=== PATIENT | male | born 1960 | race Caucasian/White ===

== ENCOUNTER 2018-05-03 18:35 | Observation (INO) | payer OTHER ==
[2018-05-03 19:25] LABS: Absolute Lymphocytes (CBC) 2.4 K/uL (0.7-4.9); Absolute Monocytes 0.8 K/uL (0.1-1.3); Absolute Neutrophil 4.9 K/uL (1.8-8.0); Basophils % 0.5 % (0-1.3); Eosinophils % 2.9 % (0-4.4); Hematocrit 39.4 % (39.6-49.0); Lymphocytes % 28.8 % (15.3-44.8); MPV 8.2 fL (7.6-11.3); Monocytes % 9.1 % (3.3-12.3); RBC Red Blood Cell Count 4.38 M/uL (4.33-5.43)
[2018-05-03 19:30] LABS: Protime INR 1.03
[2018-05-03 19:43] LABS: ALT/SGPT 23 U/L (12-78); AST/SGOT 15 U/L (15-37); Albumin 3.7 g/dL (3.4-5.0); Alkaline Phosphatase 133 U/L (45-117); BUN Blood Urea Nitrogen 16 mg/dL (7-18); Bicarbonate 20 mmol/L (21-32); Bilirubin Direct < 0.1 mg/dL (0-0.2); Bilirubin Total 0.2 mg/dL (0.2-1.0); Glucose Level 239 mg/dL (74-106); Magnesium 1.7 mg/dL (1.8-2.4); NT PRO-BNP 54 pg/mL (<125); Potassium 4.3 mmol/L (3.5-5.1); Protein, Total 6.9 g/dL (6.4-8.2); Sodium Level 140 mmol/L (136-145); Troponin (Emerg Dept Use Only) < 0.02 ng/mL (0.0-0.045)
[2018-05-03] MEDS ORDERED: ASPIRIN 81 MG CHEWABLE TABLET ONE (19:44)
--- NOTE | 2018-05-03 19:51 | EDPHYS ---
Physician Documentation [facility] Name: Ashvin Morales Age: 57 yrs Sex: Male : 1960 Arrival Date: 05/03/2018 Time: 18:36 Bed 15 Private MD: Martin Kohli ED Physician Ashutosh Jackson HPI: 05/03 20:27 This 57 yrs old Male presents to ER via Ambulatory with complaints of Chest snw Pain > 30 y/o. 20:27 The patient or guardian reports chest pain that is located primarily in the substernal snw area, epigastric area. Onset: suddenly, and became persistent. The pain does not radiate. Associated signs and symptoms: Pertinent positives: lightheadedness, shortness of breath. The chest pain is described as squeezing. Duration: The patient or guardian reports a single episode, that is now resolved. Modifying factors: The symptoms are alleviated by NTG, X1. Severity of pain: At its worst the pain was moderate. The patient has experienced similar episodes in the past. It is unknown whether or not the patient has recently seen a physician. Sees Dr. Carrion. Historical: - Allergies: 18:47 No Known Allergies; aj1 - PMHx: 18:47 cardiac stent x9; Myocardial infarction; brain aneursym; Diabetes - NIDDM; aj1 - Immunization history:: Flu vaccine is not up to date. - Social history:: Smoking status: Patient/guardian denies using tobacco. - Ebola Screening: : Patient denies travel to an Ebola-affected area in the 21 days before illness onset. ROS: 20:27 Constitutional: Negative for fever, chills, and weight loss, Eyes: Negative for injury, snw pain, redness, and discharge, ENT: Negative for injury, pain, and discharge, Neck: Negative for injury, pain, and swelling. 20:27 Abdomen/GI: Negative for abdominal pain, nausea, vomiting, diarrhea, and constipation, Back: Negative for injury and pain, : Negative for injury, bleeding, discharge, and swelling, MS/Extremity: Negative for injury and deformity, Skin: Negative for injury, rash, and discoloration. 20:27 Cardiovascular: Positive for chest pain. 20:27 Respiratory: Positive for shortness of breath. 20:27 Neuro: Positive for dizziness. Exam: 20:26 Constitutional: This is a well developed, well nourished patient who is awake, alert, snw and in no acute distress. Head/Face: Normocephalic, atraumatic. Eyes: Pupils equal round and reactive to light, extra-ocular motions intact. Lids and lashes normal. Conjunctiva and sclera are non-icteric and not injected. Cornea within normal limits. Periorbital areas with no swelling, redness, or edema. ENT: Nares patent. No nasal discharge, no septal abnormalities noted. Tympanic membranes are normal and external auditory canals are clear. Oropharynx with no redness, swelling, or masses, exudates, or evidence of obstruction, uvula midline. Mucous membranes moist. Neck: Trachea midline, no thyromegaly or masses palpated, and no cervical lymphadenopathy. Supple, full range of motion without nuchal rigidity, or vertebral point tenderness. No Meningismus. Chest/axilla: Normal chest wall appearance and motion. Nontender with no deformity. No lesions are appreciated. Cardiovascular: Regular rate and rhythm with a normal S1 and S2. No gallops, murmurs, or rubs. Normal PMI, no JVD. No pulse deficits. Respiratory: Lungs have equal breath sounds bilaterally, clear to auscultation and percussion. No rales, rhonchi or wheezes noted. No increased work of breathing, no retractions or nasal flaring. Abdomen/GI: Soft, non-tender, with normal bowel sounds. No distension or tympany. No guarding or rebound. No evidence of tenderness throughout. Back: No spinal tenderness. No costovertebral tenderness. Full range of motion. Skin: Warm, dry with normal turgor. Normal color with no rashes, no lesions, and no evidence of cellulitis. MS/ Extremity: Pulses equal, no cyanosis. Neurovascular intact. Full, normal range of motion. Neuro: Awake and alert, GCS 15, oriented to person, place, time, and situation. Cranial nerves II-XII grossly intact. Motor strength 5/5 in all extremities. Sensory grossly intact. Cerebellar exam normal. Normal gait. Psych: Awake, alert, with orientation to person, place and time. Behavior, mood, and affect are within normal limits. Vital Signs: 18:47 BP 121 / 85; Pulse 91; Resp 18; Temp 98.4; Pulse Ox 99% on R/A; Weight 74.84 kg (R); aj1 Height 5 ft. 6 in. (167.64 cm) (R); Pain 3/10; 19:30 BP 108 / 79; Pulse 90; Resp 16; Pulse Ox 98% on 2 lpm NC; Pain 0/10; aa1 20:30 BP 111 / 77; Pulse 80; Resp 16; Pulse Ox 100% on R/A; Pain 0/10; aa1 21:35 BP 112 / 82; Pulse 82; Resp 16; Temp 98.6; Pulse Ox 98% on R/A; Pain 0/10; aa1 18:47 Body Mass Index 26.63 (74.84 kg, 167.64 cm) aj1 MDM: 18:52 Patient medically screened. snw 19:50 HEART Score: History: Moderately Suspicious (1), ECG: Non specific repolarization snw disturbance / LBTB / PM (1), Age: > 45 and < 65 years (1), Risk Factors: > or = 3 Risk factors for atherosclerotic disease (2), [Hypercholesterolemia] [Hypertension] [DM] [+ Family HX] Troponin: < or = 1 x Normal Limit (0), Total Score =. The patient was given aspirin in the Emergency Department. Data reviewed: nurses notes, lab test result(s), EKG, radiologic studies. Counseling: I had a detailed discussion with the patient and/or guardian regarding: the historical points, exam findings, and any diagnostic results supporting the discharge/admit diagnosis, lab results, radiology results, the need for further work-up and treatment in the hospital. Physician consultation: Keshawn Low MD was called at 19:52, was contacted at 19:52, regarding admission, to the telemetry unit. 05/03 18:51 Order name: Basic Metabolic Panel; Complete Time: 19:45 snw 05/03 18:51 Order name: CBC with Diff; Complete Time: 19:39 snw 05/03 18:51 Order name: LFT's; Complete Time: 19:45 snw 05/03 18:51 Order name: Magnesium; Complete Time: 19:45 snw 05/03 18:51 Order name: NT PRO-BNP; Complete Time: 19:45 snw 05/03 18:51 Order name: PT-INR; Complete Time: 19:40 snw /13 18:51 Order name: Troponin (emerg Dept Use Only); Complete Time: 19:45 w 05/03 18:51 Order name: XRAY Chest (1 view); Complete Time: 19:57 w 05/03 18:51 Order name: EKG; Complete Time: 18:53 05/03 18:51 Order name: Cardiac monitoring; Complete Time: 19:13 w 05/03 18:51 Order name: EKG - Nurse/Tech; Complete Time: 19:13 05/03 18:51 Order name: IV Saline Lock; Complete Time: 19:13 05/03 18:51 Order name: Labs collected and sent; Complete Time: 19:13 05/03 18:51 Order name: O2 Per Protocol; Complete Time: 19:13 05/03 18:51 Order name: O2 Sat Monitoring; Complete Time: 19:13 snw Administered Medications: 19:39 Drug: Aspirin Chewable Tablet 324 mg Route: PO; aa1 22:04 Follow up: Response: No adverse reaction aa1 Disposition: 05/03/18 19:50 Hospitalization ordered by Keshawn Low for Observation. Preliminary diagnosis is Chest pain, unspecified. - Bed requested for Telemetry/MedSurg (observation). - Status is Observation. aa1 - Condition is Stable. - Problem is new. - Symptoms have worsened. UTI on Admission? No Addendum: 05/08/2018 01:29 Co-signature as Attending Physician, Ashutosh Jackson MD. g s Signatures: Dispatcher [employer] EDMA Elana Bhakta RN RN aj1 Mariel Lopez RN RN kl Kern, Alissa, RN RN aa1 Patty Lora, HYDRAULICS ENGINEER-C HYDRAULICS ENGINEER-Csnw Ashutosh Jackson MD MD gs Corrections: (The following items were deleted from the chart) 05/03 20:53 19:50 Hospitalization Ordered by Keshawn Low MD for Observation. Preliminary kl diagnosis is Chest pain, unspecified. Bed requested for Telemetry/MedSurg (observation). Status is Observation. Condition is Stable. Problem is new. Symptoms have worsened. UTI on Admission? No. snw 22:12 20:53 05/03/2018 19:50 Hospitalization Ordered by Keshawn Low MD for Observation. aa1 Preliminary diagnosis is Chest pain, unspecified. Bed requested for Telemetry/MedSurg (observation). Status is Observation. Condition is Stable. Problem is new. Symptoms have worsened. UTI on Admission? No. kl
--- NOTE | 2018-05-03 19:51 | ER ---
Nurse's Notes [facility] Name: Ashvin Morales Age: 57 yrs Sex: Male : 1960 Arrival Date: 05/03/2018 Time: 18:36 Bed 15 Private MD: Martin Kohli Diagnosis: Chest pain, unspecified Presentation: 05/03 18:45 Presenting complaint: Patient states: Shortness of breath and chest pain that started aj1 this morning. Patient reports that he has been sick with cough and congestion for 2 weeks now, but his chest pain today felt different and he was concerned because he has had to get 9 cardiac stents in the past and every time he has had a [place] the pain has been different. Patient reports that he took NTG 0.4 mg x1 prior to arrival. Transition of care: patient was not received from another setting of care. Onset of symptoms was May 03, 2018. Risk Assessment: Do you want to hurt yourself or someone else? Patient reports no desire to harm self or others. Initial Sepsis Screen: Does the patient meet any 2 criteria? No. Patient's initial sepsis screen is negative. Does the patient have a suspected source of infection? Yes: Productive cough/pneumonia. Care prior to arrival: None. 18:45 Method Of Arrival: Ambulatory aj1 18:45 Acuity: RANDY 2 aj1 Triage Assessment: 18:47 General: Appears in no apparent distress. uncomfortable, Behavior is calm, cooperative, aj1 appropriate for age. Pain: Complains of pain in chest Pain currently is 3 out of 10 on a pain scale. Quality of pain is described as pressure. Neuro: Level of Consciousness is awake, alert, obeys commands. Cardiovascular: Reports chest pain, Patient's skin is warm and dry. Rhythm is sinus tachycardia. Respiratory: Airway is patent Respiratory effort is even, unlabored, Respiratory pattern is regular, symmetrical. Historical: - Allergies: 18:47 No Known Allergies; aj1 - PMHx: 18:47 cardiac stent x9; Myocardial infarction; brain aneursym; Diabetes - NIDDM; aj1 - Immunization history:: Flu vaccine is not up to date. - Social history:: Smoking status: Patient/guardian denies using tobacco. - Ebola Screening: : Patient denies travel to an Ebola-affected area in the 21 days before illness onset. Screenin:03 Abuse screen: Denies threats or abuse. Denies injuries from another. Nutritional aa1 screening: No deficits noted. Tuberculosis screening: No symptoms or risk factors identified. Fall Risk None identified. Assessment: 19:03 General: Appears in no apparent distress. comfortable, well groomed, Behavior is calm, aa1 cooperative, appropriate for age. Pain: Complains of pain in chest Pain does not radiate. Quality of pain is described as pressure, Pain began 3 hours ago. Is continuous. Neuro: Level of Consciousness is awake, alert, obeys commands, Oriented to person, place, time, situation, Moves all extremities. Full function Speech is normal. Cardiovascular: Reports chest pain, shortness of breath, Denies diaphoresis, lightheadedness, nausea, palpitations, Heart tones S1 S2 present Capillary refill < 3 seconds Clubbing of nail beds is absent Patient's skin is warm and dry. Rhythm is regular Chest pain is described as mild, quality is pressure. Respiratory: Airway is patent Respiratory effort is even, unlabored, Respiratory pattern is regular, symmetrical, Breath sounds are clear bilaterally. GI: No signs and/or symptoms were reported involving the gastrointestinal system. : No signs and/or symptoms were reported regarding the genitourinary system. EENT: No signs and/or symptoms were reported regarding the EENT system. Derm: Skin is intact, is healthy with good turgor, Skin is pink, warm \T\ dry. Musculoskeletal: Circulation, motion, and sensation intact. Capillary refill < 3 seconds. 19:30 Reassessment: Patient appears in no apparent distress at this time. Patient and/or aa1 family updated on plan of care and expected duration. Pain level reassessed. Patient is alert, oriented x 3, equal unlabored respirations, skin warm/dry/pink. Awaiting lab results. 20:30 Reassessment: Patient appears in no apparent distress at this time. Patient and/or aa1 family updated on plan of care and expected duration. Pain level reassessed. Patient is alert, oriented x 3, equal unlabored respirations, skin warm/dry/pink. Pt to be admitted; awaiting bed assignment. 21:35 Reassessment: Patient appears in no apparent distress at this time. Patient and/or aa1 family updated on plan of care and expected duration. Pain level reassessed. Patient is alert, oriented x 3, equal unlabored respirations, skin warm/dry/pink. Attempted to call report to 4th floor, was told nurse unavailable and will call back shortly. 22:05 Reassessment: Patient appears in no apparent distress at this time. Patient and/or aa1 family updated on plan of care and expected duration. Pain level reassessed. Patient is alert, oriented x 3, equal unlabored respirations, skin warm/dry/pink. Report given to Barrett on 4th floor. Vital Signs: 18:47 BP 121 / 85; Pulse 91; Resp 18; Temp 98.4; Pulse Ox 99% on R/A; Weight 74.84 kg (R); aj1 Height 5 ft. 6 in. (167.64 cm) (R); Pain 3/10; 19:30 BP 108 / 79; Pulse 90; Resp 16; Pulse Ox 98% on 2 lpm NC; Pain 0/10; aa1 20:30 BP 111 / 77; Pulse 80; Resp 16; Pulse Ox 100% on R/A; Pain 0/10; aa1 21:35 BP 112 / 82; Pulse 82; Resp 16; Temp 98.6; Pulse Ox 98% on R/A; Pain 0/10; aa1 18:47 Body Mass Index 26.63 (74.84 kg, 167.64 cm) aj1 ED Course: 18:36 Patient arrived in ED. sb2 18:36 Martin Kohli MD is Private Physician. sb2 18:46 Triage completed. aj1 18:47 Arm band placed on Patient placed in an exam room. aj1 18:50 [facility]C [facility] snw 18:50 Ashutosh Jackson MD is Attending Physician. snw 19:00 Missed attempt(s): 18 gauge in right wrist. Bleeding controlled, band aid applied, aa1 catheter tip intact. 19:03 Patient has correct armband on for positive identification. Placed in gown. Bed in low aa1 position. Call light in reach. surveillance system monitor on. Pulse ox on. NIBP on. 19:05 Oxygen administration via nasal cannula \T\ 2L/min O2 via per STRATEGIC ACCOUNT DIRECTOR request. aa1 19:05 Initial lab(s) drawn, by me, sent to lab. EKG done, by ED staff, reviewed by Alvin Bowie MD. Inserted saline lock: 18 gauge in right forearm, using aseptic technique. Blood collected. 19:13 Monica Caldera, RN is Primary Nurse. aa1 19:41 XRAY Chest (1 view) In Process Unspecified. EDMS 19:50 Keshawn Low MD is Hospitalizing Provider. snw 21:32 No provider procedures requiring assistance completed. Patient admitted, IV remains in aa1 place. Administered Medications: 19:39 Drug: Aspirin Chewable Tablet 324 mg Route: PO; aa1 22:04 Follow up: Response: No adverse reaction aa1 Outcome: 19:50 Decision to Hospitalize by Provider. snw 22:10 Admitted to Tele accompanied by tech, via wheelchair, room 412, with chart, Report aa1 called to CLYDE Hyde 22:10 Condition: stable 22:10 Instructed on the need for admit, Demonstrated understanding of instructions. 22:12 Patient left the ED. aa1 Signatures: Dispatcher [employer] EDMS Elana Bhakta RN RN aj1 Monica Caldera RN RN aa1 Patty Lora, AIRFIELD MANAGER-C AIRFIELD MANAGER-Csnw Nadia Askew sb2 Corrections: (The following items were deleted from the chart) 18:49 18:45 Presenting complaint: Patient states: Shortness of breath and chest pain that aj1 started this morning. Patient reports that he has been sick with cough and congestion for 2 weeks now, but his chest pain today felt different and he was concerned because he has had to get 9 cardiac stents in the past and every time he has had a [place] the pain has been different. aj1 21:35 21:35 BP 112 / 82; Pulse 16bpm; Resp 82bpm; Pulse Ox 98% RA; Temp 98.6F; Pain 0/10; aa1 aa1
--- NOTE | 2018-05-03 19:54 | RAD REPORT ---
EXAM DESCRIPTION: RAD - Chest Single View - 05/03/2018 7:41 pm CLINICAL HISTORY: CHEST PAIN Chest pain. COMPARISON: No comparisons FINDINGS: Portable technique limits examination quality. The lungs are grossly clear. The heart is normal in size. No displaced fractures. IMPRESSION: No acute intrathoracic process suspected.
--- NOTE | 2018-05-03 20:18 | P.HP ---
Certification for Inpatient Patient admitted to: Observation With expected LOS: <2 Midnights Practitioner: I am a practitioner with admitting privileges, knowledge of patient current condition, hospital course, and medical plan of care. Services: Services provided to patient in accordance with Admission requirements found in Title 42 Section 412.3 of the Code of Federal Regulations Patient History Date of Service: 05/03/18 Reason for admission: chest pain History of Present Illness: Mr Morales is a 57 years old male with history of CAD, NIDDM, who has been with flu like symptoms for 2 weeks. 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 The pain was constant, pressure like, lasting for a couple of hours, improving with Nitro SL in ER. The pain is similar to his previous heart attack. Lab work shows normal trop I, EKG without acute ST-T changes. At my encounter he was still SOB with stable vital signs, O2 sat 99% on RA. Home medications list reviewed: Yes - Past Medical/Surgical History -: CAD -: DM II -: brain aneurism -: coronary stent placement - Family History Family History: Reviewed- Non-Contributory - Social History Smoking Status: Former smoker CD- Drugs: No Place of Residence: Home Review of Systems 10-point ROS is otherwise unremarkable Physical Examination - Physical Exam General: Alert, In no apparent distress HEENT: Atraumatic, PERRLA, Mucous membr. moist/pink, EOMI, Sclerae nonicteric Neck: Supple, 2+ carotid pulse no bruit, No LAD, Without JVD or thyroid abnormality Respiratory: Clear to auscultation bilaterally, Normal air movement Cardiovascular: Regular rate/rhythm, Normal S1 S2 Gastrointestinal: Normal bowel sounds, No tenderness Musculoskeletal: No tenderness Integumentary: No rashes Neurological: Normal speech, Normal strength at 5/5 x4 extr, Normal tone, Normal affect Lymphatics: No axilla or inguinal lymphadenopathy - Studies Laboratory Data (last 24 hrs) 05/03/18 19:05: PT 12.1, INR 1.03 05/03/18 19:05: WBC 8.3, Hgb 13.3 L, Hct 39.4 L, Plt Count 218 05/03/18 19:05: Sodium 140, Potassium 4.3, BUN 16, Creatinine 1.33 H, Glucose 239 H, Magnesium 1.7 L, Total Bilirubin 0.2, AST 15, ALT 23, Alkaline Phosphatase 133 H Assessment and Plan - Problems (Diagnosis) (1) Chest pain Current Visit: Yes Status: Acute Qualifiers: Chest pain type: precordial pain Qualified Code(s): R07.2 - Precordial pain (2) CAD (coronary artery disease) Current Visit: Yes Status: Acute Qualifiers: Coronary Disease-Associated Artery/Lesion type: [place] artery [place] vs. transplanted heart: [place] heart Associated angina: with unspecified angina Qualified Code(s): I25.119 - Atherosclerotic heart disease of [place] coronary artery with unspecified angina pectoris (3) Diabetes mellitus Current Visit: Yes Status: Acute Qualifiers: Diabetes mellitus type: type 2 Diabetes mellitus jail insulin use: without exterminator use Diabetes mellitus complication status: with unspecified complications Qualified Code(s): E11.8 - Type 2 diabetes mellitus with unspecified complications - Plan Will admit the patient for chest pain in order to R/O ACS. So far work up is negative. Will order serial troponin I and EKG. Consult cardiology team. - Advance Directives Does patient have a Living Will: No Does patient have a Durable POA for Healthcare: No - Code Status/Comfort Care Code Status Assessed: Yes Code Status: Full Code
[2018-05-03] MEDS ORDERED: NITROGLYCERIN 0.4 MG/TAB SL PRN (22:17)
[2018-05-03] MEDS ORDERED: ACETAMINOPHEN 500 MG TAB PO PRN (22:17)
[2018-05-03] MEDS ORDERED: ATORVASTATIN 80 MG TAB PO SCH (22:17)
[2018-05-03 22:22] VITALS: BMI 27.3
[2018-05-03] MEDS: ENOXAPARIN 80 MG/0.8 ML SQ SCH (22:52)
[2018-05-04 06:25] LABS: Absolute Lymphocytes (CBC) 2.6 K/uL (0.7-4.9); Absolute Monocytes 0.6 K/uL (0.1-1.3); Absolute Neutrophil 2.6 K/uL (1.8-8.0); Basophils % 0.7 % (0-1.3); Hematocrit 37.1 % (39.6-49.0); Lymphocytes % 42.2 % (15.3-44.8); MPV 8.3 fL (7.6-11.3); RBC Red Blood Cell Count 4.19 M/uL (4.33-5.43)
[2018-05-04 06:28] LABS: Urine Appearance CLEAR; Urine Bilirubin NEGATIVE (NEG); Urine Blood NEGATIVE (NEG); Urine Color YELLOW; Urine Glucose 3+ (NEG); Urine Protein NEGATIVE (NEG); Urine Specific Gravity 1.025 (1.005-1.030); Urine Urobilinogen 0.2 mg/dL (0.2-1.0)
[2018-05-04 06:31] LABS: BUN Blood Urea Nitrogen 16 mg/dL (7-18); Bicarbonate 28 mmol/L (21-32); Glucose Level 312 mg/dL (74-106); HDL Cholesterol 31 mg/dL (40-60); LDL Cholesterol, Calculated ND (<130); Potassium 4.4 mmol/L (3.5-5.1); Sodium Level 138 mmol/L (136-145)
[2018-05-04 06:33] LABS: Urine Microscopic Reflex NO UMIC
[2018-05-04 06:42] LABS: LDL, Direct 100 mg/dL (100-129)
[2018-05-04] MEDS: INSULIN -REGULAR HUMAN 50 UNIT/0.5 ML ML SQ SCH ×3 (06:46→12:00)
--- NOTE | 2018-05-04 07:58 | EKG ---
Test Date: 2018-05-03 Test Time: 19:04:39 Coin Machine Operator: ARIADNA MEASUREMENT RESULTS: Intervals: Rate: 85 NM: 134 QRSD: 74 QT: 346 QTc: 411 Secretary: P: 34 NM: 134 QRS: -8 T: 26 INTERPRETIVE STATEMENTS: Normal sinus rhythm Inferior infarct, age undetermined Abnormal ECG No previous ECG available for comparison Electronically Signed On 05-04-18 07:57:39 [employer]ATION [employer] by Shaun Singleton
[2018-05-04] MEDS ORDERED: ASPIRIN EC 81 MG TAB PO SCH (09:00)
[2018-05-04] MEDS ORDERED: COLCHICINE 0.6 MG TAB PO ONE (09:38)
[2018-05-04] MEDS: ENOXAPARIN 80 MG/0.8 ML SQ SCH (09:52)
[2018-05-04] MEDS ORDERED: REGADENOSON 0.4 MG/5 ML SYR IV ONE (10:15)
--- NOTE | 2018-05-04 12:10 | ECHO ---
HEIGHT: 5 ft 6 in WEIGHT: 169 lb 9.6 oz DATE OF STUDY: 05/04/[address]: Keshawn Macario MD 2-DIMENSIONAL: YES M.MODE: YES DOPPLER: YES COLOR FLOW: YES TDS: NO PORTABLE: NO DEFINITY: NO BUBBLE STUDY: NO DIAGNOSIS: CHEST PAIN CARDIAC HISTORY: CATHERIZATION: YES SURGERY: NO PROSTHETIC VALVE: NO PACEMAKER: NO MEASUREMENTS (cm) DIASTOLIC (NORMALS) SYSTOLIC (NORMALS) IVSd 1.0 (0.6-1.2) LA Diam 3.5 (1.9-4.0) LVEF 52% LVIDd 4.0 (3.5-5.7) LVIDs 3.0 (2.0-3.5) %FS 26% LVPWd 1.0 (0.6-1.2) Ao Diam 2.9 (2.0-3.7) 2 DIMENSIONAL ASSESSMENT: RIGHT ATRIUM: NORMAL LEFT ATRIUM: NORMAL RIGHT VENTRICLE: NORMAL LEFT VENTRICLE: NORMAL TRICUSPID VALVE: NORMAL MITRAL VALVE: NORMAL PULMONIC VALVE: NORMAL AORTIC VALVE: NORMAL PERICARDIAL EFFUSION: NONE AORTIC ROOT: NORMAL LEFT VENTRICULAR WALL MOTION: NORMAL. DOPPLER/COLOR FLOW: PHYSIOLOGICAL TRICUSPID REGURGITATION. NORMAL RIGHT VENTRICULAR SYSTOLIC PRESSURE. COMMENTS: NORMAL 2D ECHOCARDIOGRAM WITH DOPPLER. TECHNOLOGIST: MIGUEL ÁNGEL MORTON RDCS
[2018-05-04 12:39] VITALS: O2SAT 95
--- NOTE | 2018-05-04 13:48 | P.SSS ---
Patient History Date of Service: 05/04/18 Reason for admission: chest pain History of Present Illness: Mr Morales is a 57 years old male with history of CAD, NIDDM, who has been with flu like symptoms for 2 weeks. 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 The pain was constant, pressure like, lasting for a couple of hours, improving with Nitro SL in ER. The pain is similar to his previous heart attack. Lab work shows normal trop I, EKG without acute ST-T changes. At my encounter he was still SOB with stable vital signs, O2 sat 99% on RA. Allergies No Known Allergies Allergy (Verified 05/03/18 21:20) Home Medications: Adalimumab [Humira 40 MG/0.8 ML*] 40 mg SQ SEECOM 05/03/18 Aspirin Chewable [Aspirin Chewable*] 325 mg PO DAILY 05/03/18 Atorvastatin Calcium [Lipitor] 40 mg PO DAILY 05/03/18 Clopidogrel Bisulfate [Plavix*] 75 mg PO DAILY 05/03/18 Cyanocobalamin/Salcaprozat Sod [Eligen B12 Tablet] 1 tab PO BID 05/03/18 Diclofenac Sodium [Diclofenac Sodium ER] 75 mg PO BID 05/03/18 Folic Acid 2 mg PO DAILY 05/03/18 Glipizide [Glipizide ER] 10 mg PO BID 05/03/18 Isosorbide Mononitrate [Isosorbide Mononitrate ER] 60 mg PO DAILY 05/03/18 Lisinopril [Zestril] 2.5 mg PO BID 05/03/18 Metoprolol Tartrate 12.5 mg PO BID 05/03/18 Omeprazole 20 mg PO DAILY 05/03/18 Sulfasalazine [Azulfidine] 500 mg PO TID 05/03/18 - Past Medical/Surgical History Has patient received pneumonia vaccine in the past: No Diabetic: Yes -: CAD -: DM II -: brain aneurism -: heart attach x3 -: diverticulitis -: rheumatoid arthritis -: spondylitis -: coronary stent placement 9x -: 6x knee operation -: left knee replacement -: shoulder sx -: left thumb sx - Family History Family History: Reviewed- Non-Contributory - Family History Father -: Heart disease, Diabetes Mother -: Heart disease, Diabetes, Cancer Notes: colon CA - Social History Smoking Status: Former smoker Alcohol use: Yes CD- Drugs: No Caffeine use: Yes Place of Residence: Home Review of Systems 10-point ROS is otherwise unremarkable Physical Examination - Vital Signs Temperature: 98.7 F Blood Pressure: 119/74 Pulse: 79 Respirations: 18 Pulse Ox (%): 97 - Physical Exam General: Alert, In no apparent distress HEENT: Atraumatic, PERRLA, Mucous membr. moist/pink, EOMI, Sclerae nonicteric Neck: Supple, 2+ carotid pulse no bruit, No LAD, Without JVD or thyroid abnormality Respiratory: Clear to auscultation bilaterally, Normal air movement Cardiovascular: Regular rate/rhythm, Normal S1 S2 Gastrointestinal: Normal bowel sounds, No tenderness Musculoskeletal: No tenderness Integumentary: No rashes Neurological: Normal gait, Normal speech, Normal strength at 5/5 x4 extr, Normal tone, Normal affect Lymphatics: No axilla or inguinal lymphadenopathy - Studies Laboratory Data (last 24 hrs) 05/03/18 19:05: PT 12.1, INR 1.03 05/03/18 19:05: WBC 8.3, Hgb 13.3 L, Hct 39.4 L, Plt Count 218 05/03/18 19:05: Sodium 140, Potassium 4.3, BUN 16, Creatinine 1.33 H, Glucose 239 H, Magnesium 1.7 L, Total Bilirubin 0.2, AST 15, ALT 23, Alkaline Phosphatase 133 H - Diagnosis (Problem(s)) (1) CAD (coronary artery disease) Onset Date: 05/04/18 Current Visit: Yes Status: Acute Qualifiers: Coronary Disease-Associated Artery/Lesion type: [place] artery [place] vs. transplanted heart: [place] heart Associated angina: with unspecified angina Qualified Code(s): I25.119 - Atherosclerotic heart disease of [place] coronary artery with unspecified angina pectoris (2) Chest pain Onset Date: 05/04/18 Current Visit: Yes Status: Acute Qualifiers: Chest pain type: precordial pain Qualified Code(s): R07.2 - Precordial pain (3) Diabetes mellitus Onset Date: 05/04/18 Current Visit: Yes Status: Acute Qualifiers: Diabetes mellitus type: type 2 Diabetes mellitus intermodal owner operator truck driver insulin use: without intermodal owner operator truck driver use Diabetes mellitus complication status: with unspecified complications Qualified Code(s): E11.8 - Type 2 diabetes mellitus with unspecified complications Treatment Summary: Overall during the hospital stay patient remained stable Patient was initially admitted to the hospital for having chest pain. Troponin x2 was negative. Initial EKG was negative for any acute abnormality. Cardiology was consulted who recommended echocardiogram and stress test. Both of which were done here in the hospital. Echocardiogram and stress test were will within normal limits no signs of acute coronary syndrome. Patient then was discharged home under stable condition was asked to follow up with primary care provider in about 1-2 days post discharge. Patient chest pain was most likely secondary to Stable Angina vs URI. Patient thus was asked to follow up with primary care provider for further treatment. - Disposition Condition: GOOD Patient Discharge Instructions: Please f.u with PCP and cardiology in 1 to 2 week post discharge. no new medication Diet: Regular Activity: Ad evens
--- NOTE | 2018-05-04 15:18 | TREADPHA ---
DX: CHEST PAIN Date of Study: 05/04/2018 Ht: 5 6 Wt: 169 lb 9.6 oz Consulting Physician: DAVID MEDICATIONS: TYLENOL, ASPIRIN, LIPITOR, LOVENOX, NOVOLIN-R, NITROSTAT HISTORY: 57 YEAR OLD MALE WITH COMPLAINTS OF CHEST PAIN. HISTORY OF CARDIAC STENTS X9, MYOCARDIAL INFARCTION X3, BRAIN ANEURSYM, NIDDM. PHYSICIAL EXAMINATION: RESTING B.P.: 148/80 RESTING H.R.: 83 RESTING EKG: NORMAL PROTOCOL: LEXISCAN EXERCISE TIME: 3:30 B.P. AT PEAK STRESS: 132/75 IMPRESSION: LEXISCAN INJECTED. CARDIOLITE PER PROTOCOL. SEE NUCLEAR MEDICINE REPORT. NO SUPRAVENTRICULAR TACHYCARDIA. NO VENTRICULAR TACHYCARDIA. NO PREMATURE VENTRICULAR COMPLEXES. NO PREMATURE ATRIAL COMPLEXES. PATIENT REPORTED NO CHEST PAIN OR TIGHTNESS THROUGHOUT PROCEDURE. NON DIAGNOSTIC EKG WITH LEXISCAN STRESS TEST.
--- NOTE | 2018-05-04 15:27 | RAD REPORT ---
EXAM DESCRIPTION: NM - Rest Stress Cardiac Imaging - 05/04/2018 3:20 pm CLINICAL HISTORY: Chest pain. COMPARISON: None. TECHNIQUE: The patient was administered approximately 10mCi of Tc 99m Sestamibi prior to resting SPE CT imaging of the heart. The patient was then administered approximately 30 mCi of Tc 99m Sestamibi f ollowing exercise or pharmacologic stress. Multiplanar SPECT images were reviewed. FINDINGS: Mild diminished radiotracer uptake involving the inferior wall likely secondary to attenu ation from the diaphragm. Otherwise there is homogeneous radiotracer uptake involving the left ventricular myocardium. Left ventricular ejection fraction equals 51% IMPRESSION: No evidence of stress-induced ischemia
--- NOTE | 2018-05-04 15:34 | CON ---
Continuation: Please add this to the dictation that was started just a moment ago on the same patien t. Mr. Morales has pain that is all pleuritic. Nothing that sounds like angina. Since he has been in the hospital, his cardiac enzymes are normal. His EKG shows an old inferior GA, stable. Physical Examination: General: He appears to be his stated age of 57. Height 5 feet 6 inches, weight 169 pounds. HEENT: Normal. Lungs: Clear. Cardiac Exam: Normal. No friction rub. Abdomen: Soft. Extremities: Palpable distal pulses. Impression: The patient may indeed have worsening CAD but the symptoms sound suspiciously like pleur isy. I will take the liberty of giving him colchicine to try between now and when he finishes his ec hocardiogram and stress test. I suspect he has coronary heart disease that is fairly stable. DAVIS Voice ID: [id number] Report ID: [id number]
--- NOTE | 2018-05-04 15:34 | CON ---
CARDIOLOGY CONSULT Chief Complaint: Chest pain. History Of Present Illness: Mr. Morales has a history of coronary heart disease. He has had stents , 9 total, done in various procedures various different hospitals between [address] and [address] ress test was roughly a year ago. He came to the hospital because yesterday he developed chest pain. It happened while he was singing, each deep breath seemed to make it worse. DICTATION ENDS HERE. PATTY/ALICIA Voice ID: [id number] Report ID: [id number]
[2018-05-04 16:43] VITALS: BP 111/73; TEMP 97.9
== END 2018-05-04 18:36 | disposition home or self-care (01) ==
LOC: ER 18:35 → ERHOLD 19:50 → 4TH 22:06
PROVIDERS: ADMIT Internal Medicine; ATTEND Internal Medicine
DX: R07.9 Chest pain, unspecified (principal); M06.9 Rheumatoid arthritis, unspecified; I25.10 Atherosclerotic heart disease of native coronary artery without angina pectoris; Z95.5 Presence of coronary angioplasty implant and graft; E11.9 Type 2 diabetes mellitus without complications; Z79.82 Long term (current) use of aspirin; Z96.652 Presence of left artificial knee joint
CPT/HCPCS: 36415; 71045; 78452; 80048 ×2; 80061; 80076; 81003; 82962 ×3; 83721; 83735; 83880; 84484 ×4; 85025 ×2; 85610; 93005; 93017; 93306; 94760; 99285; A9500; G0378 ×2; J1650 ×2; J2785